=== PATIENT | male | born 1995 | race Caucasian/White ===

== ENCOUNTER 2022-04-30 19:06 | Emergency (ER) | payer MEDICAID ==
[~2022-04-30] VITALS: Ht 175.3 cm; Wt 81.8 kg
[2022-04-30 20:00] VITALS: BP 124/66
[2022-04-30] MEDS ORDERED: [UNRECOGNIZED DRUG - CODE] OP (20:24)
== END 2022-04-30 22:30 | disposition home or self-care (01) ==
LOC: ER 19:06
DX: T15.92XA Foreign body on external eye, part unspecified, left eye, initial encounter (principal); H10.9 Unspecified conjunctivitis; X58.XXXA Exposure to other specified factors, initial encounter; Y93.89 Activity, other specified; Y92.89 Other specified places as the place of occurrence of the external cause; Y99.8 Other external cause status